=== PATIENT | male | born 1990 | race Caucasian/White ===

== ENCOUNTER 2020-01-27 11:01 | Emergency (ER) | payer OTHER ==
[~2020-01-27] VITALS: Ht 188 cm; Wt 91.3 kg
[2020-01-27 11:01] VITALS: BP 140/82
--- NOTE | 2020-01-27 11:57 | REP ---
INDICATION: truama thumb, unable to fully extend, pain at DIP. COMPARISON: None. TECHNIQUE: Four views of the right thumb are obtained. FINDINGS: Four views of the right thumb demonstrate soft tissue swelling about the IP joint of the thumb. There is lack of extension at the IP joint. No fracture is seen. However, I cannot exclude tendon disruption or dysfunction in the extensor tendon mechanism. No other finding.. . No opaque foreign body noted. IMPRESSION: No fracture or subluxation seen. Dorsal soft tissue swelling about the IP joint of the thumb with lack of full extension. Rule out extensor tendon disruption or dysfunction.. <Electronically signed by Forrest Phillips > 01/27/20 [id number]
== END 2020-01-27 12:57 | disposition home or self-care (01) ==
LOC: M ED 11:01
DX: S66.291A Other specified injury of extensor muscle, fascia and tendon of right thumb at wrist and hand level, initial encounter (principal); W19.XXXA Unspecified fall, initial encounter; Y92.9 Unspecified place or not applicable; Y93.9 Activity, unspecified; Y99.9 Unspecified external cause status; F17.200 Nicotine dependence, unspecified, uncomplicated

== ENCOUNTER 2020-10-22 12:26 | Emergency (ER) | payer OTHER ==
[~2020-10-22] VITALS: Ht 185.4 cm; Wt 90.4 kg
[2020-10-22 12:27] VITALS: BP 125/80
--- NOTE | 2020-10-22 17:55 | REP ---
INDICATION: pain over distal tibia, fell playing football COMPARISON: None. TECHNIQUE: AP and lateral left tibia/fibula FINDINGS: The osseous structures and joint spaces are intact and normal. There is no evidence for acute fracture or dislocation. Surrounding soft tissues are unremarkable. No subcutaneous emphysema or radiodense foreign body. IMPRESSION: . No acute fracture or dislocation. <Electronically signed by David Schreiber > 10/22/20 [id number]
== END 2020-10-22 18:16 | disposition home or self-care (01) ==
LOC: M ED 12:26
DX: M79.662 Pain in left lower leg (principal); F17.200 Nicotine dependence, unspecified, uncomplicated